=== PATIENT | female | born 1970 | race Caucasian/White ===

== ENCOUNTER 2022-08-11 08:24 | Outpatient (CLI) | payer BC, SELFPAY ==
--- NOTE | ~2022-08-11 | MM_ITS ---
EXAMINATION: MM screening rosalinda BI w fili HISTORY: Screening mammogram TECHNIQUE: Craniocaudal and mediolateral oblique 3-D tomosynthesis images were obtained and synthetic 2-D images were generated. CAD analysis was submitted and interpreted. COMPARISON: 08/26/2015, 06/14/2013 bilateral screening mammogram examinations BREAST PARENCHYMAL COMPOSITION: The breasts are heterogeneously dense, which may obscure small masses . FINDINGS: There is no evidence of suspicious mass, calcification, or architectural distortion to sugg est malignancy in either breast. There has been no suspicious interval change. IMPRESSION: 1. No mammographic evidence of malignancy. 2. Recommend routine screening mammography in one year. BI-RADS Category 1: Negative Reviewed, dictated and finalized at location A.
== END 2022-08-11 08:25 | disposition home or self-care (01) ==
PROVIDERS: Visit Provider Nurse Practitioner Family
DX: Z12.31 Encounter for screening mammogram for malignant neoplasm of breast (principal)
CPT/HCPCS: 77063; 77067

== ENCOUNTER 2024-05-23 10:29 | Outpatient (CLI) | payer BC, SELFPAY ==
--- NOTE | ~2024-05-23 | XR_ITS ---
XR hip BI 2V w AP pelvis Ordering provider: Carissa Torre, BESSEMER CONVERTER OPERATOR History: . Pain in bilateral legs . Comparison: None. FINDINGS: BONES: No acute fracture or dislocation. HIP JOINT SPACES: Normal. SACROILIAC JOINT SPACES/LUMBAR SPINE: The sacroiliac joint spaces are normal. Mild degenerative romero es of the visualized lower lumbar spine. PUBIC SYMPHYSIS: Pubic symphysitis. SOFT TISSUES: Normal. IMPRESSION: No acute osseous abnormality of the bilateral hips and pelvis. Reviewed, dictated and finalized at location A.
--- NOTE | ~2024-05-23 | XR_ITS ---
3 VIEWS LUMBAR SPINE Ordering provider: Carissa Torre, SOFTWARE CONSULTANT History: . Pain in bilateral legs . Comparison: None. FINDINGS: VERTEBRAL BODIES: No visible fracture or subluxation. Mild dextroscoliosis. DISK SPACES: Normal. Mild facet joint disease in the lower lumbar area. SOFT TISSUES: Normal. IMPRESSION: No acute osseous abnormality lumbar spine. Reviewed, dictated and finalized at location A.
== END 2024-05-23 10:30 ==
LOC: MICIMG 10:34
PROVIDERS: PCP Nurse Practitioner Family; Visit Provider Nurse Practitioner Family
DX: M79.604 Pain in right leg (principal); M79.605 Pain in left leg
CPT/HCPCS: 72100; 73521

== ENCOUNTER 2025-06-23 12:58 | Outpatient (CLI) | payer BC, SELFPAY ==
--- NOTE | ~2025-06-23 | MMUS_ITS ---
EXAMINATION: US breast BI complete, MM diagnostic rosalinda BI w fili HISTORY: Breast swelling after tic bite. Swelling resolved after antibiotics. TECHNIQUE: Additional 3-D tomosynthesis images of the breasts were performed and synthetic 2-D images were generated. CAD analysis was submitted and interpreted. High resolution bilateral complete breas t ultrasound was performed. COMPARISON: Comparison to multiple prior studies sequentially, with oldest reviewed study dated 11/2014. BREAST PARENCHYMAL COMPOSITION: Dense: The breasts are heterogeneously dense, which may obscure small masses FINDINGS: MAMMOGRAPHIC FINDINGS: There are no suspicious masses, calcifications or architectural distortion in either breast to sugges t malignancy. ULTRASOUND: Complete US of all 4 quadrants of the breast/s and retroareolar region was reviewed. There are normal bilateral intramammary lymph nodes. There are no suspicious sonographic abnormalities to suggest mal ignancy. IMPRESSION: 1. No evidence for malignancy in either breast. 2. Routine yearly screening mammogram and regular clinical breast examination are recommended. BI-RADS Category 1: Negative Reviewed, dictated and finalized at location B. IMPRESSION: 1. No evidence for malignancy in either breast. 2. Routine yearly screening mammogram and regular clinical breast examination a re recommended. BI-RADS Category 1: Negative
--- OUTSIDE RECORDS SUMMARY | 2025-06-23 13:11 | XMS_ITS | Clinical Summary ---
Author Organization [facility] Address [address] [facility] [place] [address] Care Team Providers Care Dining Service Supervisor Name Role Phone Gayatri Gonzáles APN, CNP Primary Care Provid er Encounters Date Type Department Care Team Description 06/17/2025 3:52 PM CDT - 06/17/2025 11:59 PM CDT Hospital [facility] [address] [place] [address] Gayatri Gonzáles APN, CNP Discharge Disposition: Discharged to home or Selfcare 06/17/2025 Travel 06/17/2025 Transcribe Orders [facility] Central Scheduling [address] [place] [address] Gayatri Gonzáles APN, CNP Chest wall mass (Primary Dx) from Last 3 Months Social History Tobacco Use Types Packs/Day Years Used Date Smoking Tobacco: Never Assessed Comments Unknown Sex and Gender Information Value Date Recorded Sex Assigned at Not on file Legal Sex Female 11:29 AM CDT Gender Identity Not on file Sexual Orientation Not on file Plan of Treatment Health Maintenance Due Date Last Done Comments Hepatitis C Virus (HCV) Screening 1969 Mammogram 1969 Hepatitis B Immunization (1 of 3 - 19+ 3-dose series) 01/28/1988 Pap Smear 1990 Cervical Cancer Screening (CCS) 1999 HPV/Cotest 1999 Cologuard 2014 Colonoscopy 2014 Colorectal Cancer Screening 2014 Immunochemical Fecal Occult Blood 2014 Pneumococcal Immunization (5 0+ years) (1 of 1 - PCV) 2019 SARS-COV-2 Immunization ( season) 2024 01/06/2022, 04/05/2021, 03/13/2021 Influenza Immunization (#1) 2025 Respiratory Syncytial Virus (RSV) Immunization (Adult) (1 - 1-dose 75+ series) 01/28/2044 TdaP Immunization Completed 07/16/2023 Zoster Immunization Completed 09/17/2023, 07/16/2023 Human Papillomavirus (HPV) Immunization Aged Out No longer eligible b ased on patient's age to complete this topic Meningococcal Immunization (ACWY) Aged Out No longer eligible b ased on patient's age to complete this topic Rotavirus Immunization Aged Out No lo nger eligible based on patient's age to complete this topic Procedures Procedure Name Priority Date/Time Associated Diagnosis Comments CT CHEST W CONTRAST STAT 06/17/2025 4 :07 PM CDT Chest wall mass from Last 3 Months Results * CT CHEST W CONTRAST (06/17/2025 4:07 PM CDT) Anatomical Region Laterality Modality Chest N/A Computed Tomogra phy 06/18/2025 2:10 PM CDT Impressions 06/18/2025 2:13 PM CDT IMPRESSION: 1. Subtle skin thickening and mild stranding within the subcutaneous soft tissues at the site of BB marker placed at the area of palpable abnormality in the anterior inferior right chest. No focal soft tissue mass or fluid collection. 2. No acute pulmonary process. 3. 4 mm nodule in the right upper lobe. Per Fleischner Society Guidelines, no follow-up needed if patient is low-risk (and has no known or suspected primary neoplasm). Non-contrast chest CT can be considered in 12 months if patient is high-risk. 4. Hypodense lesions within the liver. In the absence of any history of malignancy these would statistically represent cysts or hemangiomas. 5. Dense fibroglandular parenchyma within both breasts. Would ensure patient is up-to-date with mammography. Narrative 06/18/2025 2:13 PM CDT EXAM DESCRIPTION: CT CHEST W CONTRAST REASON FOR STUDY: Chest wall mass. Marker placed on lump/area of interest. Additional history obtained by technologist reports tick bite, with inflammation and pain. TECHNIQUE: CT scan of the chest performed with intravenous contrast using helical scanning technique with dynamic intravenous contrast injection. Reconstructed coronal and sagittal MPR images reviewed. All images stored on PACS. Automated exposure control was used as a dose optimization technique for this examination. CONTRAST TYPE/DOSE: 100mL of IOPAMIDOL 76 % IV SOLN injected via Intravenous COMPARISON: None FINDINGS: LUNGS: There is no pneumonic consolidation within either lung. Minimal subsegmental scarring/atelectasis. No suspicious pulmonary nodule. There is a 4 mm nodule in the periphery of the right upper lobe on image number 26 there are a few additional micro nodules present bilaterally. The central airways are patent. PLEURA: There is no pleural effusion. There is no pneumothorax. MEDIASTINUM/PATRIZIA: The thyroid gland is unremarkable. There is no mediastinal or hilar lymphadenopathy. Subcentimeter short axis dimension nodes are present. Minimal soft tissue within the anterior mediastinum suggesting residual thymic tissue. HEART: Heart size is normal with no pericardial effusion. VASCULATURE: No thoracic aortic aneurysm or dissection. Main pulmonary trunk is normal in caliber. AXILLA: There are scattered nonenlarged axillary nodes. No axillary adenopathy. CHEST WALL: Dense fibroglandular parenchyma within both breasts. Would ensure patient is up-to-date with mammography. HARDWARE/LINES/TUBES: None. UPPER ABDOMEN: The visualized upper abdomen reveals a hypodense lesion in the left hepatic lobe on image 105 measuring 1 cm, most likely a cyst. There are a few scattered subcentimeter hypodensities in the liver which would statistically represent cysts or hemangiomas. 1 cm hypodensity in the subcapsular posterior right hepatic lobe on image number 131 spleen is unremarkable. The adrenal glands are unremarkable. Visualized biliary tree within normal limits in caliber. MUSCULOSKELETAL: There is no acute osseous abnormality. OTHER: At the site of BB marker placed at the area of palpable abnormality in the anterior inferior right chest, there is very subtle skin thickening and mild stranding within the adjacent subcutaneous soft tissues. No focal soft tissue mass or fluid collection. THIS IS AN ELECTRONICALLY VERIFIED FINAL REPORT 06/18/2025 2:10 PM - Electronically signed by Jeni Kenney M.D. TW: TW Report ID: [id number] Reading Location: [id number] Procedure Note Kenney, Jeni Olivier MD - 06/18/2025 EXAM DESCRIPTION: CT CHEST W CONTRAST REASON FOR STUDY: Chest wall mass. Marker placed on lump/area of interest. Additional history obtained by technologist reports tick bite, with inflammation and pain. TECHNIQUE: CT scan of the chest performed with intravenous contrast using helical scanning technique with dynamic intravenous contrast injection. Reconstructed coronal and sagittal MPR images reviewed. All images stored on PACS. Automated exposure control was used as a dose optimization technique for this examination. CONTRAST TYPE/DOSE: 100mL of IOPAMIDOL 76 % IV SOLN injected via Intravenous COMPARISON: None FINDINGS: LUNGS: There is no pneumonic consolidation within either lung. Minimal subsegmental scarring/atelectasis. No suspicious pulmonary nodule. There is a 4 mm nodule in the periphery of the right upper lobe on image number 26 there are a few additional micro nodules present bilaterally. The central airways are patent. PLEURA: There is no pleural effusion. There is no pneumothorax. MEDIASTINUM/PATRIZIA: The thyroid gland is unremarkable. There is no mediastinal or hilar lymphadenopathy. Subcentimeter short axis dimension nodes are present. Minimal soft tissue within the anterior mediastinum suggesting residual thymic tissue. HEART: Heart size is normal with no pericardial effusion. VASCULATURE: No thoracic aortic aneurysm or dissection. Main pulmonary trunk is normal in caliber. AXILLA: There are scattered nonenlarged axillary nodes. No axillary adenopathy. CHEST WALL: Dense fibroglandular parenchyma within both breasts. Would ensure patient is up-to-date with mammography. HARDWARE/LINES/TUBES: None. UPPER ABDOMEN: The visualized upper abdomen reveals a hypodense lesion in the left hepatic lobe on image 105 measuring 1 cm, most likely a cyst. There are a few scattered subcentimeter hypodensities in the liver which would statistically represent cysts or hemangiomas. 1 cm hypodensity in the subcapsular posterior right hepatic lobe on image number 131 spleen is unremarkable. The adrenal glands are unremarkable. Visualized biliary tree within normal limits in caliber. MUSCULOSKELETAL: There is no acute osseous abnormality. OTHER: At the site of BB marker placed at the area of palpable abnormality in the anterior inferior right chest, there is very subtle skin thickening and mild stranding within the adjacent subcutaneous soft tissues. No focal soft tissue mass or fluid collection. THIS IS AN ELECTRONICALLY VERIFIED FINAL REPORT 06/18/2025 2:10 PM - Electronically signed by Jeni Kenney M.D. TW: TW Report ID: [id number] Reading Location: [place] [address] IMPRESSION: 1. Subtle skin thickening and mild stranding within the subcutaneous soft tissues at the site of BB marker placed at the area of palpable abnormality in the anterior inferior right chest. No focal soft tissue mass or fluid collection. 2. No acute pulmonary process. 3. 4 mm nodule in the right upper lobe. Per Fleischner Society Guidelines, no follow-up needed if patient is low-risk (and has no known or suspected primary neoplasm). Non-contrast chest CT can be considered in 12 months if patient is high-risk. 4. Hypodense lesions within the liver. In the absence of any history of malignancy these would statistically represent cysts or hemangiomas. 5. Dense fibroglandular parenchyma within both breasts. Would ensure patient is up-to-date with mammography. Gayatri Gonzáles APN, CNP IMG CT ORDERABLES Fi nal Result from Last 3 Months Insurance [facility] Care Teams Dining Service Supervisor Relationship Specialty Start Date End Date Gayatri Gonzáles APN, CNP [address] [place] [address] PCP - General Advanced Practice Nurse 06/17/25
--- OUTSIDE RECORDS SUMMARY | 2025-06-23 13:11 | XMS_ITS | Clinical Summary ---
Author Organization [facility] Address [address] [place] [address] Care Team Providers Care Blueprint Reader Name Role Phone Unavailable Primary Care Provider Unavailabl e Medications permethrin (ELIMITE) 5 % Cream APPLY (THOROUGHLY MASSAGE INTO SKIN FROM NECK TO SOLES OF FEET) BY TOPICAL ROUTE ONCE, LEAVE ON FOR 8-14 HR, THEN REMOVE BY THOROUGH WASHING 60 Gram 07/11/2022 5:47 PM CDT 2 Active triamcinolone acetonide (KENALOG) 0.1 % Cream APPLY A THIN LAYER TO THE AFFECTED AREA(S) BY TOPICAL ROUTE 2 TIMES PER DAY NEEDED 45 Gram 07/18/2022 6:18 PM CDT 2 Active albuterol sulfate 90 mcg/Actuation inhaler Inhale 2 puffs every 4 hours by inhalation route as needed. 8.5 Gram 1 10/27/2022 3:07 PM [employer] INTERFACE DEVELOPER 2 Active Social History Tobacco Use Types Packs/Day Years Used Date Smoking Tobacco: Never Assessed Comments Unknown Sex and Gender Information Value Date Recorded Sex Assigned at Not on file Legal Sex Female 2:01 PM CDT Gender Identity Not on file Sexual Orientation Not on file Plan of Treatment Health Maintenance Due Date Last Done Comments DTAP/TDAP/TD VACCINES (1 - Tdap) 01/28/1988 HEPATITIS B VACCINES (1 of 3 - 19+ 3-dose series) 02/1988 HPV/Cotest (21-29) 1990 CERVICAL CANCER SCREENING 1999 HPV/Cotest (30-65) 1999 PAP SMEAR 1999 BREAST CANCER SCREENING 2009 COLORECTAL SCREENING 2014 Colorectal Cancer Screening 2014 FIT-DNA Q 3 years 2014 FIT/FOBT Q 1 year 2014 Flex Sig/CT Colonography Q 5 years 2014 ZOSTER VACCINE (1 of 2) 2019 INFLUENZA VACCINE (#1) 2025 Insurance RX [employer] Medicaid RX [facility] [employer]
--- OUTSIDE RECORDS SUMMARY | 2025-06-23 13:11 | XMS_ITS | Data Portability ---
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 She voices understanding of plan and agrees Not available 03/28/2023 13:55:26 Plan of Treatment Reminders Order Date Submit Date Provider Last Modified By Organization Details Last Modified Time Details Appointments None recorded. Lab CBC w/ auto diff 2023 [email or web address] [employer] [facility], [address], [place], [address], 10:38:52 CMP, serum or plasma 2023 [email or web address], [address], [place], [address], 10:38:53 C-reactive protein, quantitati ve, serum or plasma 2023 [email or web address], [address], [place], [address], 14:48:41 erythrocyt e sedimentat ion rate by westergren method 2023 [place] [address] [employer] [facility], [address], [place], [address], 4 14:48:41 lipid panel, serum [address] (Lab), [address] [place], [address], 4 14:48:40 vitamin D, 25-hydroxy , total, serum 2023 [place] [address] [employer] [facility], [address], [place], [address], 4 14:48:41 vitamin B12 + folate, serum or blood 2023 [place] [address] [employer] [facility], [address], [place], [address], 4 14:48:41 TSH + free T4, serum 2023 024 [place] [address] [employer] [facility], [address], [place], [address], 4 10:38:54 HbA1c (hemoglobi n A1c), blood 2023 024 [facility], [address], [place], [address], 4 16:31:18 FSH (follicle- stimulatin g hormone), serum 2023 024 [facility], [address], [place], [address], 4 16:30:50 estrogen, total, serum 2023 024 [employer] [facility], [address], [place], [address], 4 16:30:50 progestero ne, serum 2023 024 [facility], [address], [place], [address], 4 16:30:49 testostero ne, total, serum 2023 024 [email or web address] [facility], [address], [place], [address], 4 14:48:41 lipid panel, serum 2022 023 [facility], [address], [place], [address], 3 10:50:27 vitamin D, 25-hydroxy , total, serum 2022 023 [facility], [address], [place], [address], 3 10:50:32 TSH, serum, reflex free T4 2022 023 [email or web address] [facility], [address], [place], [address], 3 17:21:17 HbA1c (hemoglobi n A1c), blood 2022 023 [facility], [address], [place], [address], 3 10:50:32 CMP, serum or plasma 2022 023 [facility], [address], [place], [address], 3 10:50:29 CBC w/ auto diff 2022 023 [facility], [address], [place], [address], 3 10:50:[address] referral - due for WWE- now has commercial insurance 2022 023 [email or web address] Kia Arambula MD, [address], [address], [place], [address], 4 14:11:20 plastic surgeon referral - please schedule with Ana for annual skin check 2022 023 [email or web address] Franklin Sharma MD, [address], [address], [place], [address], 4 14:11:21 Procedures None recorded. Surgeries None recorded. Imaging XR, hip + pelvis, bilateral, 3 or 4 view 2023 024 [email or web address], [address], [address], [place], [address], 5 07:42:33 XR, lumbar spine, 2 view 2023 024 [facility], [address], [address], [place], [address], 4 08:17:05 Medication Orders None recorded. Patient TargetsNo targets recorded. Patient Instructions Encounter Date Encounter Id Patient Instructions Last Modified By Organization Details Last Modified Time 03/28/2023 [id number] INFLUENZA VACCIN E Next vaccination to be given fall of TD/TDAP Patient will get at local pharmacy/health department PNEUMONIA VACCINE Patient will get at local pharmacy/health department SHINGLES Patient will get at local pharmacy/health department MAMMOGRAM: Last Mammogram __ No screening necessary patient is up to date DEXA SCAN Ordered CERVICAL SCREENING/PELVIC EXAMINATION Ordered COLORECTAL SCREENING: Last Colonoscopy No screening necessary patient is up to date DEPRESSION SCREENING Negative BMI Appropriate Continue healthy eating & exercise NUTRITION Continue healthy eating & exercise PHYSICAL ACTIVITY Need more exercise/physical activity minimum of 30-40 minutes of activity that causes mild breathlessness/da y VISION Recommended today ALCOHOL USE Occasional/Social Use TOBACCO USE non smoker LUNG CANCER SCREENING Non Smoker-not indicated SEXUALLY ACTIVE Yes, Patient is in monogamous relationship HEPATITIS C SCREENING Not indicated GLUCOSE SCREENING Ordered LIPID SCREENING Ordered [email or web address] Not available 03/28/2023 13:55:21 04/30/2024 [id number] (BOSSMAN) ankle brachial index* [email or web address] Not available 11/03/2024 07:46:59 Follow up in 6 months and as needed Obtain labs Obtain xrays of hips/pelvis/lumba r spine Obtain ABIs Follow up with chiropractor [email or web address] Not available 04/30/2024 10:31:27 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 0 Diabe shakira Scree daniel Crite lamin: <5.7% Consi stent with absen ce of diabe shakira 5.7-6 .4% Consi stent with incre ased risk for diabe shakira (pred iabet es) >OR=6 .5% Consi stent with diabe shakira REFER ENCE: Diabe shakira Care 2016, 39(Jacome ppl.1 ):s13 -s22 Not Available [facility] (Lab) [address] [place], [address], 02/22/2022 20:23:07 02/23/20 22 02/22/2022 LIPID PANEL cholesterol 202 mg/dL 140-19 9 high NIH FRANCINE NSUS RECOM MENDA TION FOR HARIKA STERO L: ADULT CHILD LOW RISK: <200 <170 BORDE RLINE : <200- 239 ----- HIGH RISK: >240 >200 Not Available [facility] (Lab) [address] [place], [address], 02/22/2022 19:43:02 02/23/20 22 02/22/2022 LIPID PANEL triglyceride s 87 mg/dL 0-150 NIH FRANCINE NSUS REPOR T RECOM MENDA TION FOR TRIGL YCERI ARIANA: ADULT CHILD LOW RISK: <150 ----- BODER LINE: 150-1 99 ----- HIGH RISK: >200 ----- Not Available [facility] (Lab) [address] [place], [address], 02/22/2022 19:43:02 02/23/20 22 02/22/2022 LIPID PANEL HDL cholesterol 101 mg/dL 40- Not Available [facility] (Lab) [address] [place], [address], 02/22/2022 19:43:02 02/23/20 22 02/22/2022 LIPID PANEL LDL cholesterol, calculated 84 mg/dL 0-130 NIH FRANCINE NSUS REPOR T RECOM MENDA TIONS FOR LDL: ADULT CHILD LOW RISK <130 <110 (OPTI MAL LDL) <100 ----- BORDE RLINE : 130-1 59 ----- HIGH RISK: >160 >130 A TRIGL YCERI DE RESUL T >400 INVAL IDATE S THE CALCU LATIO N FOR LDL FRACT IONAT ION - THE LDL RESUL T WILL NOT BE REPOR LACY. Not Available [facility] (Lab) [address] [place], [address], 02/22/2022 19:43:02 02/23/20 22 02/24/2022 ESTRA DIOL estradiol 11.3 pg/mL Adult Femal e: Folli cular phase 12.5 - 166.0 Ovula tion phase 85.8 - 498.0 Lutea l phase 43.8 - 211.0 Postm enopa usal <6.0 - 54.7 Pregn lucio 1st trime ster 215.0 - >4300 .0 William ECLIA metho dolog y Perfo rmed at: - [facility] [address] [place] [address] Lab Direc tor: Edvin contreras PhD, Phone : [phone] Not Available [facility] (Lab) [address] [place], [address], 02/24/2022 08:16:56 02/23/20 22 02/24/2022 FSH/F OLLIC LE STIMU LAT. HORMO NE [facility] - [facility] 65.6 mIU/m L Adult Femal e: Folli cular phase 3.5 - 12.5 Ovula tion phase 4.7 - 21.5 Lutea l phase 1.7 - 7.7 Postm enopa usal 25.8 - 134.8 Perfo rmed at: [facility] [address] [place] [address] Lab Direc tor: Edvin contreras PhD, Phone : [phone] Not Available [facility] (Lab) [address] [place], [address], 02/24/2022 08:16:55 02/23/20 22 02/22/2022 FOLAT E, SERUM /PLAS MA folate 8.36 NG/mL 2.76- Not Available [facility] (Lab) [address] [place], [address], 02/22/2022 20:43:46 02/23/20 22 02/22/2022 VITAM IN B12 (WILL CASSANDRA ) vb12 880 pg/mL 239-93 1 Not Available [facility] (Lab) [address] [place], [address], 02/22/2022 20:43:36 02/23/20 22 02/22/2022 RUDOLPH TIN ferritin 37 NG/mL 11.1-2 64 Not Available [facility] (Lab) [address] [place], [address], 02/22/2022 20:13:01 02/23/20 22 02/22/2022 TSH thyroid-stim ulating hormone 1.900 uIU/m L 0.465- 4.680 Not Available [facility] (Lab) [address] [place], [address], 02/22/2022 20:12:41 02/23/20 22 02/22/2022 VITAM IN D 25-HY DROXY [id number] 72.1 NG/mL 30-100 Vitam in D Statu s: Defic ient: <20 ng/mL Insuf ficie nt: 20-29 ng/mL Suffi cient : 30-10 0 ng/mL Not Available [facility] (Lab) [address] [place], [address], 02/22/2022 19:53:59 02/23/20 22 02/22/2022 T3 FREE free T3 3.3 pg/mL 2.77-5 .27 Not Available [facility] (Lab) [address] [place], [address], 02/22/2022 19:48:00 02/23/20 22 02/22/2022 T4 FREE free T4 1.03 NG/dL 0.78-2 .19 Not Available [facility] (Lab) [address] [place], [address], 02/22/2022 19:47:59 02/23/20 22 02/22/2022 IRON/ TIBC PANEL total iron binding capacity 289 mcg/d L 265-47 5 Not Available [facility] (Lab) [address] [place], [address], 02/22/2022 19:43:06 02/23/20 22 02/22/2022 IRON/ TIBC PANEL % transferrin saturation 30 % 20-55 Not Available [facility] (Lab) [address] [place], [address], 02/22/2022 19:43:06 02/23/20 22 02/22/2022 IRON/ TIBC PANEL unsaturated iron bind capacity 201 mcg/d L 126-38 2 Not Available [facility] (Lab) [address] [place], [address], 02/22/2022 19:43:06 02/23/20 22 02/22/2022 IRON/ TIBC PANEL iron 88 mcg/d L 42-175 Not Available [facility] (Lab) [address] [place], [address], 02/22/2022 19:43:06 02/23/20 22 02/22/2022 COMPR EHENS TEMI METAB OLIC PANEL sodium 139 mmol/ L 137-14 5 Not Available [facility] (Lab) [address] [place], [address], 02/22/2022 19:42:57 02/23/20 22 02/22/2022 COMPR EHENS TEMI METAB OLIC PANEL potassium 4.3 mmol/ L 3.5-5. 1 Not Available [facility] (Lab) [address] [place], [address], 02/22/2022 19:42:57 02/23/20 22 02/22/2022 COMPR EHENS TEMI METAB OLIC PANEL chloride 108 mmol/ L 98-107 high Not Available [facility] (Lab) [address] [place], [address], 02/22/2022 19:42:57 02/23/20 22 02/22/2022 COMPR EHENS TEMI METAB OLIC PANEL carbon dioxide 26 mmol/ L 22-30 Not Available [facility] (Lab) [address] [place], [address], 02/22/2022 19:42:57 02/23/20 22 02/22/2022 COMPR EHENS TEMI METAB OLIC PANEL agap 9.3 mmol/ L 14-22 low Not Available [facility] (Lab) [address] [place], [address], 02/22/2022 19:42:57 02/23/20 22 02/22/2022 COMPR EHENS TEMI METAB OLIC PANEL glucose 109 mg/dL 70-99 high Not Available [facility] (Lab) [address] [place], [address], 02/22/2022 19:42:57 02/23/20 22 02/22/2022 COMPR EHENS TEMI METAB OLIC PANEL BUN 23 mg/dL 8-19 high Not Available [facility] (Lab) [address] [place], [address], 02/22/2022 19:42:57 02/23/20 22 02/22/2022 COMPR EHENS TEMI METAB OLIC PANEL creatinine 0.76 mg/dL 0.66-1 .25 Not Available [facility] (Lab) [address] [place], [address], 02/22/2022 19:42:57 02/23/20 22 02/22/2022 COMPR EHENS TEMI METAB OLIC PANEL GFR >60 Refer ence Range : [place] ge GFR Healt hy Adult : >60 mL/mi n/1.7 3 m2 Chron ic Kidne y Disea se: 15-60 mL/mi n/1.7 3 m2 Kidne y Failu re: <15/m L/min /1.73 m2 www.n iddk. nih.g ov The MDRD study equat ion has not been valid ated in child simona <18 years of age; pregn ant women ; the elder ly >85 years of age; or in some racia l or ethni c subgr oups, such as Hispa nics. Outsi de the valid ated nicole eters , estim ated GFR is less accur ate, requi ring clini radha judgm ent on a case- by-ca se basis . Clini radha inter preta tion for other races and ages must be made by the clini eyal. The MDRD study equat ion has not been valid ated for the evalu ation of serum creat inine relat ed to nutri loni l statu s or medic ation usage . For perso ns <18 years of age, a pedia tric GFR calcu lator is avail able on the F websi te: https ://ryanne w.domi jemma.o rg/pr ofess ional s/kdo qi/gf r_cal culat or Not Available [facility] (Lab) [address] [place], [address], 02/22/2022 19:42:57 02/23/20 22 02/22/2022 COMPR EHENS TEMI METAB OLIC PANEL alkaline phosphatase 59 U/L 38-126 Not Available [facility] (Lab) [address] [place], [address], 02/22/2022 19:42:57 02/23/20 22 02/22/2022 COMPR EHENS TEMI METAB OLIC PANEL alanine aminotransfe rase 16 U/L 0-35 Not Available [facility] (Lab) [address] [place], [address], 02/22/2022 19:42:57 02/23/20 22 02/22/2022 COMPR EHENS TEMI METAB OLIC PANEL aspartate aminotransfe rase 24 U/L 15-37 Not Available [facility] (Lab) [address] [place], [address], 02/22/2022 19:42:57 02/23/20 22 02/22/2022 COMPR EHENS TEMI METAB OLIC PANEL bilirubin, total 0.20 mg/dL 0.20-1 .30 Not Available [facility] (Lab) [address] [place], [address], 02/22/2022 19:42:57 02/23/20 22 02/22/2022 COMPR EHENS TEMI METAB OLIC PANEL calcium 9.6 mg/dL 8.4-10 .2 Not Available [facility] (Lab) [address] [place], [address], 02/22/2022 19:42:57 02/23/20 22 02/22/2022 COMPR EHENS TEMI METAB OLIC PANEL total protein 6.8 g/dL 6.3-8. 2 Not Available [facility] (Lab) [address] [place], [address], 02/22/2022 19:42:57 02/23/20 22 02/22/2022 COMPR EHENS TEMI METAB OLIC PANEL albumin 4.1 g/dL 3.4-5. 0 Not Available [facility] (Lab) [address] [place], [address], 02/22/2022 19:42:57 02/23/20 22 02/22/2022 COMPR EHENS TEMI METAB OLIC PANEL globulin 2.7 g/dL 2.6-4. 2 Not Available [facility] (Lab) [address] [place], [address], 02/22/2022 19:42:57 02/23/20 22 02/22/2022 COMPR EHENS TEMI METAB OLIC PANEL A/G ratio 1.5 ratio 1.0-2. 0 Not Available [facility] (Lab) [address] [place], [address], 02/22/2022 19:42:57 02/23/20 22 02/22/2022 CBC/C OMPLE TE BLD COUNT W/DIF F white blood cells 6.0 x10'3 /uL 4.2-10 .8 Not Available [facility] (Lab) [address] [place], [address], 02/22/2022 19:19:38 02/23/20 22 02/22/2022 CBC/C OMPLE TE BLD COUNT W/DIF F red blood cells 4.21 x10'6 /uL 3.80-5 .20 Not Available [facility] (Lab) [address] [place], [address], 02/22/2022 19:19:38 02/23/20 22 02/22/2022 CBC/C OMPLE TE BLD COUNT W/DIF F hemoglobin 13.8 g/dL 12.0-1 5.6 Not Available [facility] (Lab) [address] [place], [address], 02/22/2022 19:19:38 02/23/20 22 02/22/2022 CBC/C OMPLE TE BLD COUNT W/DIF F hematocrit 40.8 % 35.7-4 5.7 Not Available [facility] (Lab) [address] [place], [address], 02/22/2022 19:19:38 02/23/20 22 02/22/2022 CBC/C OMPLE TE BLD COUNT W/DIF F mean red cell volume 96.9 fL 82.0-9 9.0 Not Available [facility] (Lab) [address] [place], [address], 02/22/2022 19:19:38 02/23/20 22 02/22/2022 CBC/C OMPLE TE BLD COUNT W/DIF F mean red cell hemoglobin 32.8 pg 27.0-3 3.0 Not Available [facility] (Lab) [address] [place], [address], 02/22/2022 19:19:38 02/23/20 22 02/22/2022 CBC/C OMPLE TE BLD COUNT W/DIF F mean RBC HGB concentratio n 33.8 g/dL 31.0-3 6.0 Not Available [facility] (Lab) [address] [place], [address], 02/22/2022 19:19:38 02/23/20 22 02/22/2022 CBC/C OMPLE TE BLD COUNT W/DIF F red cell distribution width 11.7 % 11.8-1 5.5 low Not Available [facility] (Lab) [address] [place], [address], 02/22/2022 19:19:38 02/23/20 22 02/22/2022 CBC/C OMPLE TE BLD COUNT W/DIF F platelets 262 x10'3 /uL 150-40 0 Not Available [facility] (Lab) [address] [place], [address], 02/22/2022 19:19:38 02/23/20 22 02/22/2022 CBC/C OMPLE TE BLD COUNT W/DIF F mean platelet volume 10.6 fL 9.0-12 .4 Not Available [facility] (Lab) [address] [place], [address], 02/22/2022 19:19:38 02/23/20 22 02/22/2022 CBC/C OMPLE TE BLD COUNT W/DIF F neutrophils 66.8 % 39.0-7 2.0 Not Available [facility] (Lab) [address] [place], [address], 02/22/2022 19:19:38 02/23/20 22 02/22/2022 CBC/C OMPLE TE BLD COUNT W/DIF F lymphocytes 26.2 % 16.0-4 7.0 Not Available [facility] (Lab) [address] [place], [address], 02/22/2022 19:19:38 02/23/20 22 02/22/2022 CBC/C OMPLE TE BLD COUNT W/DIF F monocytes 6.0 % 5.0-12 .0 Not Available [facility] (Lab) [address] [place], [address], 02/22/2022 19:19:38 02/23/20 22 02/22/2022 CBC/C OMPLE TE BLD COUNT W/DIF F eosinophils 0.2 % 1.0-7. 0 low Not Available [facility] (Lab) [address] [place], [address], 02/22/2022 19:19:38 02/23/20 22 02/22/2022 CBC/C OMPLE TE BLD COUNT W/DIF F basophils 0.5 % 0.0-2. 0 Not Available [facility] (Lab) [address] [place], [address], 02/22/2022 19:19:38 02/23/20 22 02/22/2022 CBC/C OMPLE TE BLD COUNT W/DIF F immature granulocytes 0.3 % 0.00-0 .50 Not Available [facility] (Lab) [address] [place], [address], 02/22/2022 19:19:38 02/23/20 22 02/22/2022 CBC/C OMPLE TE BLD COUNT W/DIF F neutrophils, absolute count 4.03 x10'3 /uL 1.5-8. 0 Not Available [facility] (Lab) [address] [place], [address], 02/22/2022 19:19:38 02/23/20 22 02/22/2022 CBC/C OMPLE TE BLD COUNT W/DIF F lymphocytes, absolute count 1.58 x10'3 /uL 1.07-3 .43 Not Available [facility] (Lab) [address] [place], [address], 02/22/2022 19:19:38 02/23/20 22 02/22/2022 CBC/C OMPLE TE BLD COUNT W/DIF F monocytes, absolute count 0.36 x10'3 /uL 0.29-0 .99 Not Available [facility] (Lab) [address] [place], [address], 02/22/2022 19:19:38 02/23/20 22 02/22/2022 CBC/C OMPLE TE BLD COUNT W/DIF F eosinophils, absolute count 0.01 x10'3 /uL 0.02-0 .53 low Not Available [facility] (Lab) [address] [place], [address], 02/22/2022 19:19:38 02/23/20 22 02/22/2022 CBC/C OMPLE TE BLD COUNT W/DIF F basophils, absolute count 0.03 x10'3 /uL 0.01-0 .08 Not Available [facility] (Lab) [address] [place], [address], 02/22/2022 19:19:38 02/23/20 22 02/22/2022 CBC/C OMPLE TE BLD COUNT W/DIF F immature granulocytes ,absolute 0.02 x10'3 /uL 0.00-0 .05 Not Available [facility] (Lab) [address] [place], [address], 02/22/2022 19:19:38 02/23/20 22 02/22/2022 CBC/C OMPLE TE BLD COUNT W/DIF F nucleated red blood cells 0.0 % -0 Not Available [facility] (Lab) [address] [place], [address], 02/22/2022 19:19:38 02/23/20 22 02/22/2022 CBC/C OMPLE TE BLD COUNT W/DIF F NRBC# 0.00 x10'3 /uL Not Available [facility] (Lab) [address] [place], [address], 02/22/2022 19:19:38 02/28/20 22 02/27/2022 COLOG UARD cologuard result reportable negati ve negati ve NEGAT TEMI TEST RESUL T. A negat temi Colog uard resul t indic ates a low likel ihood that a color ectal cance r (CRC) or advan marlene adeno ma (beny omato us polyp s with more advan marlene pre-m align ant featu res) is prese nt. The [facility] e that a perso n with a negat temi Colog uard test has a color ectal cance r is less than 1 in 1500 (nega tive predi ctive value >99.9 %) or has an advan marlene adeno ma is less than 5.3% (nega tive predi ctive value 94.7% ). These data are based on a prosp ectiv e cross -sect ional study of ,00 0 indiv idual s at [place] risk for color ectal cance r who were scree kiana with both Colog uard and colon oscop y. (Darius Berry et al, N Engl J Med 2014; 370(1 4):12 86-12 97) The ar l value (refe rence range ) for this assay is negat temi. COLOG UARD RE-SC REEJESSICA MILTON RECOM MENDA TION: Perio dic color ectal cance r scree daniel is an impor tant part of preve ntive healt hcare for asymp tomat ic indiv idual s at [place] risk for color ectal cance r. Follo wing a negat temi Colog uard resul t, the Ameri can Cance r Socie ty and U.S. Multi -Soci ety Task Force scree daniel guide lines recom mend a Colog uard re-sc michael milton inter aldo of 3 years . Refer ences : Ameri can Cance r Socie ty Guide line for Color ectal Cance r Scree daniel: https ://ww w.can cer.o rg/ca ncer/ colon -rect al-ca ncer/ detec tion- diagn osis- stagi ng/ac s-rec ommen datio ns.ht ml.; Roger JUSTICE, Bette VIVAR, Nicci MitchellK, Color ectal Cance r Scree daniel: Recom menda tions for Physi cians and Patie nts from the U.S. Multi -Soci ety Task Force on Color ectal Cance r Scree daniel , Am J Abdifatah buenonte rolog y 2017; 112:1 016-1 030. TEST DESCR IPTIO N: [place] site algor ithmi c jack sis of stool DNA-b franci izaguirre with hemog lobin immun oassa y. Quant itati ve value s of indiv idual bioma rkers are not repor table and are not assoc iated with indiv idual bioma rker resul t refer ence range s. Colog uard is inten ded for color ectal cance r scree daniel of adult s of eithe r sex, 45 years or older , who are at [facility] for color ectal cance r (CRC) . Colog uard has been appro jackelyn for use by the U.[place]. FDA. The perfo rmanc e of Colog uard was estab lishe d in a cross secti onal study of [facility] adult s aged 50-84 . Colog uard perfo rmanc e in patie nts ages 45 to 49 years was estim ated by sub-g roup jack sis of near- age group s. Colon oscop ies perfo rmed for a posit temi resul t may find as the most clini bran signi aravind prasad lespetros n: color ectal cance r [4.0% ], advan marlene adeno ma (incl uding sessi le richard lacy polyp s great er than or equal to 1cm diame ter) [20%] or non- advan marlene adeno ma [31%] ; or no color ectal neopl adria [45%] . These estim ates are deriv ed from a prosp ectiv e cross -sect ional scree daniel study of 10,00 0 indiv idual s at [facility] risk for color ectal cance r who were scree kiana with both Colog uard and colon oscop y. (Darius Mack al, N Engl J Med 2014; 370(1 4):12 86-12 97.) Colog uard may produ ce a false negat temi or false posit temi resul t (no color ectal cance r or preca ncero us polyp prese nt at colon oscop y follo w up). A negat temi Colog uard test resul t does not guara ntee the absen ce of CRC or advan marlene adeno ma (pre- cance r). The curre nt Colog uard scree daniel inter aldo is every 3 years . ([employer] r [employer] ty and [employer] Multi -Soci [employer]y Task Force ). Colog uard perfo rmanc e data in a 10,00 0 patie nt pivot al study using colon oscop y as the refer ence metho d can be acces sed at the follo wing locat ion: www.e xactl abs.c om/re sults . Addit ional descr iptio n of the Colog uard test proce ss, warni ngs and preca ution s can be found at www.c ologu radha.c om. Not Available [facility] (Cologuard Orders Only) [address], [place], [address], 03/03/2022 17:29:47 03/22/20 22 03/22/2022 CBC/C OMPLE TE BLD COUNT W/DIF F NRBC# 0.00 x10'3 /uL Not Available [facility] (Lab) [address] [place], [address], 03/22/2022 19:29:37 03/22/20 22 03/22/2022 CBC/C OMPLE TE BLD COUNT W/DIF F white blood cells 5.6 x10'3 /uL 4.2-10 .8 Not Available [facility] (Lab) [address] [place], [address], 03/22/2022 19:29:37 03/22/20 22 03/22/2022 CBC/C OMPLE TE BLD COUNT W/DIF F red blood cells 4.14 x10'6 /uL 3.80-5 .20 Not Available [facility] (Lab) [address] [place], [address], 03/22/2022 19:29:37 03/22/20 22 03/22/2022 CBC/C OMPLE TE BLD COUNT W/DIF F hemoglobin 13.4 g/dL 12.0-1 5.6 Not Available [facility] (Lab) [address] [place], [address], 03/22/2022 19:29:37 03/22/20 22 03/22/2022 CBC/C OMPLE TE BLD COUNT W/DIF F hematocrit 40.6 % 35.7-4 5.7 Not Available [facility] (Lab) [address] [place], [address], 03/22/2022 19:29:37 03/22/20 22 03/22/2022 CBC/C OMPLE TE BLD COUNT W/DIF F mean red cell volume 98.1 fL 82.0-9 9.0 Not Available [facility] (Lab) [address] [place], [address], 03/22/2022 19:29:37 03/22/20 22 03/22/2022 CBC/C OMPLE TE BLD COUNT W/DIF F mean red cell hemoglobin 32.4 pg 27.0-3 3.0 Not Available [facility] (Lab) [address] [place], [address], 03/22/2022 19:29:37 03/22/20 22 03/22/2022 CBC/C OMPLE TE BLD COUNT W/DIF F mean RBC HGB concentratio n 33.0 g/dL 31.0-3 6.0 Not Available [facility] (Lab) [address] [place], [address], 03/22/2022 19:29:37 03/22/20 22 03/22/2022 CBC/C OMPLE TE BLD COUNT W/DIF F red cell distribution width 12.2 % 11.8-1 5.5 Not Available [facility] (Lab) [address] [place], [address], 03/22/2022 19:29:37 03/22/20 22 03/22/2022 CBC/C OMPLE TE BLD COUNT W/DIF F platelets 267 x10'3 /uL 150-40 0 Not Available [facility] (Lab) [address] [place], [address], 03/22/2022 19:29:37 03/22/20 22 03/22/2022 CBC/C OMPLE TE BLD COUNT W/DIF F mean platelet volume 10.3 fL 9.0-12 .4 Not Available [facility] (Lab) [address] [place], [address], 03/22/2022 19:29:37 03/22/20 22 03/22/2022 CBC/C OMPLE TE BLD COUNT W/DIF F neutrophils 58.7 % 39.0-7 2.0 Not Available [facility] (Lab) [address] [place], [address], 03/22/2022 19:29:37 03/22/20 22 03/22/2022 CBC/C OMPLE TE BLD COUNT W/DIF F lymphocytes 33.3 % 16.0-4 7.0 Not Available [facility] (Lab) [address] [place], [address], 03/22/2022 19:29:37 03/22/20 22 03/22/2022 CBC/C OMPLE TE BLD COUNT W/DIF F monocytes 6.7 % 5.0-12 .0 Not Available [facility] (Lab) [address] [place], [address], 03/22/2022 19:29:37 03/22/20 22 03/22/2022 CBC/C OMPLE TE BLD COUNT W/DIF F eosinophils 0.5 % 1.0-7. 0 low Not Available [facility] (Lab) [address] [place], [address], 03/22/2022 19:29:37 03/22/20 22 03/22/2022 CBC/C OMPLE TE BLD COUNT W/DIF F basophils 0.4 % 0.0-2. 0 Not Available [facility] (Lab) [address] [place], [address], 03/22/2022 19:29:37 03/22/20 22 03/22/2022 CBC/C OMPLE TE BLD COUNT W/DIF F immature granulocytes 0.4 % 0.00-0 .50 Not Available [facility] (Lab) [address] [place], [address], 03/22/2022 19:29:37 03/22/20 22 03/22/2022 CBC/C OMPLE TE BLD COUNT W/DIF F neutrophils, absolute count 3.26 x10'3 /uL 1.5-8. 0 Not Available [facility] (Lab) [address] [place], [address], 03/22/2022 19:29:37 03/22/20 22 03/22/2022 CBC/C OMPLE TE BLD COUNT W/DIF F lymphocytes, absolute count 1.85 x10'3 /uL 1.07-3 .43 Not Available [facility] (Lab) [address] [place], [address], 03/22/2022 19:29:37 03/22/20 22 03/22/2022 CBC/C OMPLE TE BLD COUNT W/DIF F monocytes, absolute count 0.37 x10'3 /uL 0.29-0 .99 Not Available [facility] (Lab) [address] [place], [address], 03/22/2022 19:29:37 03/22/20 22 03/22/2022 CBC/C OMPLE TE BLD COUNT W/DIF F eosinophils, absolute count 0.03 x10'3 /uL 0.02-0 .53 Not Available [facility] (Lab) [address] [place], [address], 03/22/2022 19:29:37 03/22/20 22 03/22/2022 CBC/C OMPLE TE BLD COUNT W/DIF F basophils, absolute count 0.02 x10'3 /uL 0.01-0 .08 Not Available [facility] (Lab) [address] [place], [address], 03/22/2022 19:29:37 03/22/20 22 03/22/2022 CBC/C OMPLE TE BLD COUNT W/DIF F immature granulocytes ,absolute 0.02 x10'3 /uL 0.00-0 .05 Not Available [facility] (Lab) [address] [place], [address], 03/22/2022 19:29:37 03/22/20 22 03/22/2022 CBC/C OMPLE TE BLD COUNT W/DIF F nucleated red blood cells 0.0 % -0 Not Available [facility] (Lab) [address] [place], [address], 03/22/2022 19:29:37 04/05/20 23 04/06/2023 LIPID PANEL , STAND RADHA cholesterol, total 206 mg/dL <200 high Not Available [employer] [address] [address] [place], [address], 04/06/2023 10:50:27 04/05/2004/06/2023 LIPID PANEL , STAND RADHA HDL cholesterol 102 mg/dL > or = 50 normal Not Available [employer] [address] [address] [place], [address], 04/06/2023 10:50:27 04/05/2004/06/2023 LIPID PANEL , STAND RADHA triglyceride s 44 mg/dL <150 normal Not Available [employer] [address] [address] [place], [address], 04/06/2023 10:50:27 04/05/20 23 04/06/2023 LIPID PANEL , STAND RADHA LDL-choleste rol 91 mg/dL _(radha c) normal Refer ence range : <100 Sonido able range <100 mg/dL for prima ry preve ntion ; <70 mg/dL for patie nts with CHD or diabe tic patie nts with > or = 2 CHD risk facto rs. LDL-C is now calcu lated using the Kathleen n-Hop kins calcu anjelica n, which is a valid ated novel metho d provi ding hayley r accur acy than the Fried meera equat ion in the estim ation of LDL-C . Kathleen cruz SS et al. KYLE. 2013; 310(1 9): 2061- 2068 (http ://ed ucati on.Qu melanyCaterCow. com/f aq/FA Q164) Not Available [employer] [facility] [address] [place], [address], 04/06/2023 10:50:27 04/05/2004/06/2023 LIPID PANEL , STAND RADHA chol/HDLC ratio 2.0 (calc ) <5.0 normal Not Available [employer] [facility] [address] [place], [address], 04/06/2023 10:50:27 04/05/20 23 04/06/2023 LIPID PANEL , STAND RADHA non HDL cholesterol 104 mg/dL _(radha c) <130 normal For patie nts with diabe shakira plus 1 major ASCVD risk facto r, treat ing to a non-H DL-C goal of <100 mg/dL (LDL- C of <70 mg/dL ) is consi randee mays c optio n. Not Available [employer] [facility] [address] [place], [address], 04/06/2023 10:50:27 04/05/20 23 04/06/2023 COMPR EHENS TEMI METAB OLIC PANEL glucose 83 mg/dL 65-139 normal Non-f astin g refer ence inter aldo Not Available [address] [address] [place], [address], 04/06/2023 10:50:29 04/05/20 23 04/06/2023 COMPR EHENS TEMI METAB OLIC PANEL urea nitrogen (BUN) 23 mg/dL 7-25 normal Not Available [address] [address] [place], [address], 04/06/2023 10:50:29 04/05/20 23 04/06/2023 COMPR EHENS TEMI METAB OLIC PANEL creatinine 0.87 mg/dL 0.50-1 .03 normal Not Available [address] [address] [place], [address], 04/06/2023 10:50:29 04/05/20 23 04/06/2023 COMPR EHENS TEMI METAB OLIC PANEL eGFR 79 mL/mi n/1.7 3m2 > or = 60 normal The eGFR is based on the CKD-E PI 2020 equat ion. To calcu late the new eGFR from a previ ous Creat inine or Cysta tin C resul t, go to https ://ryanne meade/omaira hinojosa s/ kdoqi /gfr% 5Fcal culat or Not Available [address] [address] [place], [address], 04/06/2023 10:50:29 04/05/20 23 04/06/2023 COMPR EHENS TEMI METAB OLIC PANEL BUN/creatini ne ratio NOT APPLIC ABLE (calc ) 6-22 Not Available [address] [address] [place], [address], 04/06/2023 10:50:29 04/05/20 23 04/06/2023 COMPR EHENS TEMI METAB OLIC PANEL sodium 142 mmol/ L 135-14 6 normal Not Available [address] [address] [place], [address], 04/06/2023 10:50:29 04/05/20 23 04/06/2023 COMPR EHENS TEMI METAB OLIC PANEL potassium 4.1 mmol/ L 3.5-5. 3 normal Not Available [address], [address], 04/06/2023 10:50:29 04/05/20 23 04/06/2023 COMPR EHENS TEMI METAB OLIC PANEL chloride 107 mmol/ L 98-110 normal Not Available [address], [address], 04/06/2023 10:50:29 04/05/20 23 04/06/2023 COMPR EHENS TEMI METAB OLIC PANEL carbon dioxide 29 mmol/ L 20-32 normal Not Available [address], [address], 04/06/2023 10:50:29 04/05/20 23 04/06/2023 COMPR EHENS TEMI METAB OLIC PANEL calcium 9.2 mg/dL 8.6-10 .4 normal Not Available [address], [address], 04/06/2023 10:50:29 04/05/20 23 04/06/2023 COMPR EHENS TEMI METAB OLIC PANEL protein, total 6.4 g/dL 6.1-8. 1 normal Not Available [address], [address], 04/06/2023 10:50:29 04/05/20 23 04/06/2023 COMPR EHENS TEMI METAB OLIC PANEL albumin 4.2 g/dL 3.6-5. 1 normal Not Available [address], [address], 04/06/2023 10:50:29 04/05/20 23 04/06/2023 COMPR EHENS TEMI METAB OLIC PANEL globulin 2.2 g/dL_ (calc ) 1.9-3. 7 normal Not Available [address] [address] [place], [address], 04/06/2023 10:50:29 04/05/20 23 04/06/2023 COMPR EHENS TEMI METAB OLIC PANEL albumin/glob ulin ratio 1.9 (calc ) 1.0-2. 5 normal Not Available [address], [address], 04/06/2023 10:50:29 04/05/20 23 04/06/2023 COMPR EHENS TEMI METAB OLIC PANEL bilirubin, total 0.4 mg/dL 0.2-1. 2 normal Not Available [address], [address], 04/06/2023 10:50:29 04/05/20 23 04/06/2023 COMPR EHENS TEMI METAB OLIC PANEL alkaline phosphatase 71 U/L 37-153 normal Not Available [address], [address], 04/06/2023 10:50:29 04/05/20 23 04/06/2023 COMPR EHENS TEMI METAB OLIC PANEL AST 20 U/L 10-35 normal Not Available [address], [address], 04/06/2023 10:50:29 04/05/20 23 04/06/2023 COMPR EHENS TEMI METAB OLIC PANEL ALT 14 U/L 6-29 normal Not Available [address], [address], 04/06/2023 10:50:29 04/05/20 23 04/06/2023 CBC (INCL UDES DIFF/ PLT) white blood cell count 5.7 thous and/u L 3.8-10 .8 normal Not Available [address], [address], 04/06/2023 10:50:30 04/05/20 23 04/06/2023 CBC (INCL UDES DIFF/ PLT) red blood cell count 4.31 melissa on/uL 3.80-5 .10 normal Not Available [address], [address], 04/06/2023 10:50:30 04/05/20 23 04/06/2023 CBC (INCL UDES DIFF/ PLT) hemoglobin 13.7 g/dL 11.7-1 5.5 normal Not Available [address], [address], 04/06/2023 10:50:30 04/05/20 23 04/06/2023 CBC (INCL UDES DIFF/ PLT) hematocrit 41.1 % 35.0-4 5.0 normal Not Available [address], [address], 04/06/2023 10:50:30 04/05/20 23 04/06/2023 CBC (INCL UDES DIFF/ PLT) MCV 95.4 fL 80.0-1 00.0 normal Not Available [address], [address], 04/06/2023 10:50:30 04/05/20 23 04/06/2023 CBC (INCL UDES DIFF/ PLT) MCH 31.8 pg 27.0-3 3.0 normal Not Available [address], [address], 04/06/2023 10:50:30 04/05/20 23 04/06/2023 CBC (INCL UDES DIFF/ PLT) MCHC 33.3 g/dL 32.0-3 6.0 normal Not Available [address], [address], 04/06/2023 10:50:30 04/05/20 23 04/06/2023 CBC (INCL UDES DIFF/ PLT) RDW 12.0 % 11.0-1 5.0 normal Not Available [address], [address], 04/06/2023 10:50:30 04/05/20 23 04/06/2023 CBC (INCL UDES DIFF/ PLT) platelet count 236 thous and/u L 140-40 0 normal Not Available [address], [address], 04/06/2023 10:50:30 04/05/20 23 04/06/2023 CBC (INCL UDES DIFF/ PLT) MPV 10.8 fL 7.5-12 .5 normal Not Available [address], [address], 04/06/2023 10:50:30 04/05/20 23 04/06/2023 CBC (INCL UDES DIFF/ PLT) absolute neutrophils 3067 cells /uL 1500-7 800 normal Not Available [address], [address], 04/06/2023 10:50:30 04/05/20 23 04/06/2023 CBC (INCL UDES DIFF/ PLT) absolute lymphocytes 2069 cells /uL 850-39 00 normal Not Available [address], [address], 04/06/2023 10:50:30 04/05/20 23 04/06/2023 CBC (INCL UDES DIFF/ PLT) absolute monocytes 422 cells /uL 200-95 0 normal Not Available [facility] [address], [address], 04/06/2023 10:50:30 04/05/20 23 04/06/2023 CBC (INCL UDES DIFF/ PLT) absolute eosinophils 120 cells /uL 15-500 normal Not Available [employer] [address], [address], 04/06/2023 10:50:30 04/05/20 23 04/06/2023 CBC (INCL UDES DIFF/ PLT) absolute basophils 23 cells /uL 0-200 normal Not Available [address], [address], 04/06/2023 10:50:30 04/05/20 23 04/06/2023 CBC (INCL UDES DIFF/ PLT) neutrophils 53.8 % normal Not Available [facility] [address], [address], 04/06/2023 10:50:30 04/05/20 23 04/06/2023 CBC (INCL UDES DIFF/ PLT) lymphocytes 36.3 % normal Not Available [address], [address], 04/06/2023 10:50:30 04/05/20 23 04/06/2023 CBC (INCL UDES DIFF/ PLT) monocytes 7.4 % normal Not Available [facility] [address], [address], 04/06/2023 10:50:30 04/05/20 23 04/06/2023 CBC (INCL UDES DIFF/ PLT) eosinophils 2.1 % normal Not Available [address], [address], 04/06/2023 10:50:30 04/05/20 23 04/06/2023 CBC (INCL UDES DIFF/ PLT) basophils 0.4 % normal Not Available [facility] [address], [address], 04/06/2023 10:50:30 04/05/20 23 04/06/2023 TSH W/REF LEONCIO TO FT4 TSH w/reflex to FT4 5.85 mIU/L high Refer ence Range > or = 20 Years 0.40- 4.50 Pregn lucio Range s First trime ster 0.26- 2.66 Secon d trime ster 0.55- 2.73 Third trime ster 0.43- 2.91 Not Available [facility] [address] [place], [address], 04/06/2023 10:50:31 04/05/20 23 04/06/2023 T4, FREE T4, free 1.0 NG/dL 0.8-1. 8 normal Not Available [facility] [address] [place], [address], 04/06/2023 10:50:31 04/05/20 23 04/06/2023 VITAM IN D,25- OH,TO JOSHUA,I A vitamin D,25-oh,tota l,ia 34 NG/mL 30-100 normal Vitam in D Statu s 25-OH Vitam in D: Defic iency : <20 ng/mL Insuf ficie ncy: 20 - 29 ng/mL Optim al: > or = 30 ng/mL For 25-OH Vitam in D testi ng on patie nts on D2-jacome pplem entat ion and patie nts for whom quant itati on of D2 and D3 fract ions is requi red, the [facility] eD(TM ) 25-OH VIT D, (D2,D 3), LC/MS /MS is recom coung d: order code 70945 (david ents >2yrs ). See Note 1 Note 1 For addit ional infor parul recinos e refer to http: //[facility] barbara Llanosia gnost ics.c om/fa q/FAQ 199 (This link is being provi ded for infor jo thompson/ educvikram chu purpo ses only. ) Not Available [facility] [address] [place], [address], 04/06/2023 10:50:32 04/05/2004/06/2023 HEMOG LOBIN A1C hemoglobin A1C 5.5 %_of_ total _HGB <5.7 normal For the purpo se of scree daniel for the prese nce of diabe shakira: <5.7% Consi stent with the absen ce of diabe shakira 5.7-6 .4% Consi stent with incre ased risk for diabe shakira (pred iabet es) > or =6.5% Consi stent with diabe shakira This assay resul t is consi stent with a decre ased risk of diabe shakira. Curre ntly, no conse nsus exist s regar ramesh use of hemog lobin A1c for diagn osis of diabe shakira in child simona. Accor ding to Ameri can Diabe shakira Assoc iatio n (ADA) guide lines , hemog lobin A1c <7.0% repre sents optim al contr ol in non-p regna nt diabe tic patie nts. Diffe rent metri cs may apply to speci fic patie nt popul ation s. Stand ards of Medic al Care in Diabe shakira(A DA). Not Available [facility] [address] [place], [address], 04/06/2023 10:50:32 08/11/20 22 08/11/2022 MAMMO , scree daniel, digit al, bilat eral No observ ation record ed. [id number] [facility] [address], [place], [address], 01/24/2023 22:44:17 05/24/20 24 05/23/2024 XR, lumba r spine , 2 view No observ ation record ed. [email or web address] [facility] [address], [place], [address], 05/28/2024 10:56:13 Result Notes None recorded. Problems Name Problem SNOMED Code Status Onset Date Resolution Date Notes Provider Name and Address Organization Details Recorded Time White blood cell count outside reference range 598762371 Active 2021 Carissa Torre APRN [address], [place], [address] , [place] [facility] [place] [employer] 4 08:17:04 Acute sinusitis 32457820 Active 2021 Not Available [employer] 3 22:42:53 Cough 04421498 Active 2022 Not Available [facility] 3 22:42:53 Upper respirator y infection 33917652 Active 2022 Not Available [facility] 3 22:42:53 Pruritic rash 54070645 Active 2022 SEVERIANO HammondP-C [address], [address], [place], [address] , [facility] 3 17:24:57 Menopausal flushing 464235629 Active 2022 SEVERIANO HammondP-C [address], [address], [place], [address] , [facility] 3 17:25:07 Vitamin D deficiency 58016787 Active 2022 Carissa Torre APRN [address], [address], [place], [address] , [facility] 4 08:16:52 Serum thyroid stimulatin g hormone level outside reference range 963477830 Active 2022 Carissa Torre APRN [address], [address], [place], [address] , [facility] 4 08:16:56 Eruption 816390497 Active 2022 Swati rodarte, [facility] 3 16:01:33 C-reactive protein above reference range 7846819168971 04 Active 2023 Carissa Torre APRN [address], [address], [place], [address] , [facility] 4 10:25:47 Pain in bilateral legs 4728703094124 9108 Active 2023 Carissa Torre APRN [address], [address], [place], [address] , [facility] 4 10:26:04 Prediabete s 060008830 Active 2023 Carissa Nicho, MECHANICAL EXPERT [address] [facility], [address], [place], [address] , [facility] [employer] [facility] 4 08:02:25 Problem Notes None recorded. Procedures Surgical History Date Name Laterality Status Provider Name and Address Organization Details Recorded Time delivery completed Not Available [facility] 01/24/2023 22:42:14 Imaging Results None recorded. Procedure Notes None recorded. Medical Equipment None Reported. Allergies No known drug allergies Medications Name Sig Start Date Stop Date Status Note LastModified by Organization Details LastModified Time azithromyci n 250 mg tablet TAKE 2 TABLETS BY MOUTH TODAY, THEN TAKE 1 TABLET DAILY FOR 4 DAYS 03/28 completed Not Available Not Available Not Available prednisone 20 mg tablet TAKE 2 TABLETS BY MOUTH EVERY DAY FOR 5 DAYS 03/28 completed Not Available Not Available Not Available permethrin 5 % topical cream PLEASE SEE ATTACHED FOR DETAILED DIRECTION S 04/30 completed Not Available Not Available Not Available triamcinolo ne acetonide 0.1 % topical cream APPLY A THIN LAYER TO THE AFFECTED AREA(S) BY TOPICAL ROUTE 2 TIMES PER DAY PRN active Not Available Not Available No t Available amoxicillin 875 mg tablet 03/28 completed Not Available Not Available Not Available benzonatate 100 mg capsule Take 1 capsule 3 times a day by oral route as needed. 03/28 completed Not Available Not Available Not Available albuterol sulfate HFA 90 mcg/actuati on aerosol inhaler INHALE 2 PUFFS EVERY 4 HOURS NEEDED active Not Available Not Available No t Available Vitals Date Recorded Body mass index (BMI) Body height Oxygen saturation Oxygen saturation in Arterial blood by Pulse oximetry Heart rate Body temperature Body weight Systolic And Diastolic Provider Name and Address Organization Details Last Updated DateTime 2 22.9 kg/m2 170.18 cm 99 % 99 % 73 /min 97.7 [degF] 60900.4 9 g 116/76 mm[Hg] Not Available [facility] 3 22:42:19 Date Recorded Body height Body mass index (BMI) Body weight Body temperature Heart rate Oxygen saturation Oxygen saturation in Arterial blood by Pulse oximetry Systolic And Diastolic Provider Name and Address Organization Details Last Updated DateTime 3 170.18 cm 22.1 kg/m2 86171.5 2 g 98 [degF] 64 /min 98 % 98 % 114/70 mm[Hg] Mary Ellen Rodriguez MA [facility] [employer] [facility] 3 11:59:47 Date Recorded Body mass index (BMI) Body weight Provider Name and Address Organization Details Last Updated DateTime 04/30/2024 22.3 kg/m2 95219.91 g Carissa Nicho, MECHANICAL EXPERT [address] [facility], [facility] [address], [place], [address], [facility] [employer] [facility] 04/30/2024 10:19:35 Date Recorded Body height Body temperature Heart rate Oxygen saturation Oxygen saturation in Arterial blood by Pulse oximetry Systolic And Diastolic Provider Name and Address Organization Details Last Updated DateTime 4 170.18 cm 97 [degF] 58 /min 99 % 99 % 110/68 mm[Hg] Lyric Lomax MA [facility] [employer] [facility] 4 10:07:39 Date Recorded Body mass index (BMI) Body height Oxygen saturation Oxygen saturation in Arterial blood by Pulse oximetry Heart rate Body temperature Body weight Systolic And Diastolic Provider Name and Address Organization Details Last Updated DateTime 2 22.9 kg/m2 170.18 cm 99 % 99 % 64 /min 97.6 [degF] 40606.4 9 g 112/74 mm[Hg] Not Available [facility] 3 22:42:19 Date Recorded Body height Provider Name an d Address Organization Details Last Updated DateTime 10/27/2022 170.18 cm Not Available [facility] 3 22:42:19 Social History Question Answer Notes LastModified by Organizat ion Details LastModified Time Tobacco Smoking Status Never Smoker Not Available [facility] 01/24/2023 22:42:01 Do You Wear A Helmet When Biking? Yes [id number] Information not available 01/24/2023 What Is Your Level Of Caffeine Consumption? Moderate [id number] Information not available 01/24/2023 In The 14 Days Before Symptom Onset, Have You Had Close Contact With A Laboratory-confir med COVID-19 While That Case Was Ill? No [id number] Information not available 01/24/2023 In The 14 Days Before Symptom Onset, Have You Had Close Contact With A Person Who Is Under Investigation For COVID-19 While That Person Was Ill? No [id number] Information not available 01/24/2023 What Type Of Diet Are You Following? REGULAR [id number] Information not available 01/24/2023 What Is The Highest Grade Or Level Of School You Have Completed Or The Highest Degree You Have Received? [id number] Information not available 01/24/2023 Have There Been Any Changes To Your Family Or Social Situation? No Information no t available 04/30/2024 What Is The Fluoride Status Of Your Home? Unknown [id number] Information not available 01/24/2023 Are There Any Guns Present In Your Home? No [id number] Information not available 01/24/2023 Do You Use Insect Repellent Routinely? No [id number] Information not available 01/24/2023 Where Do You Live? [place] [id number] Information not available 01/24/2023 What Was The Date Of Your Most Recent Tobacco Screening? 04/30/2024 Information not available 04/30/2024 How Many Children Do You Have? 1 Information not available 04/30/2024 Do You Have Any Pets? Yes [id number] Information not available 01/24/2023 What Is Your Relationship Status? Information not available 04/30/2024 Do You Use Your Seat Belt Or Car Seat Routinely? Yes [id number] Information not available 01/24/2023 Do You Have Smoke And Carbon Monoxide Detectors In Your Home? Yes [id number] Information not available 01/24/2023 Are You Passively Exposed To Smoke? No [id number].[id number] 5050 Information not available 01/24/2023 Are There Any Smokers In Your House? No Information not available 04/30/2024 Do You Use Sunscreen Routinely? Yes [id number] 1519 Information not available 01/24/2023 Have You Recently Traveled Abroad? No [id number] Information not available 01/24/2023 Do You Have Any Dietary Restrictions? No [id number].[id number] Information not available 01/24/2023 Sex: Unknown Functional Status Question Answer Note LastModified by Organizat [employer] Details LastModified Time Do you use any illicit or recreational drugs? No [id number] Information not available 01/24/2023 Do you or have you ever used any other forms of tobacco or nicotine? No [id number] 026 Information not available 01/24/2023 What is your level of alcohol consumption? Occasional [id number] 026 Information not available 01/24/2023 What is your occupation? self employed [id number] 026 Information not available 01/24/2023 What is your exercise level? Moderate [id number] 026 Information not available 01/24/2023 Mental Status Question Answer Note LastModified by Organizat ion Details LastModified Time Do you feel stressed (tense, restless, nervous, or anxious, or unable to sleep at night)? [id number] Information not available 01/24/2023 Family History Relationship Description Onset Age of this Age Resolved Age Notes LastModified by Organization Details LastModified Time Mother Dementia [id number] Not available 01/24/2023 22:42:15 Maternal Grandmother Hypertensive disorder [id number] Not available 01/24/2023 22:42:15 Maternal Grandfather Congestive heart failure [id number] Not available 01/24/2023 22:42:15 Medical History Condition Response BLINDNESS N NERVE DISEASE N RHEUMATIC FEVER N BLADDER PROBLEMS N KIDNEY STONES N MRSA N OTHER # 1 N POLIO N LUNG DISEASE/DISORDER N HISTORY OF DRUG ABUSE N RADIATION / CHEMOTHERAPY N COPD N Other # 2 N BLOOD DISEASES N EAR OR HEARING PROBLEMS N MUMPS N SHINGLES N DEPRESSION (INCLUDING POST ) N BOWEL PROBLEMS N STROKE/TIA N ULCERS N BENIGN PROSTATIC HYPERPLASIA N MEASLES N HYPOTENSION N MYOCARDIAL INFARCTION N OBESITY N GERD/NAUSEA N ANEURYSM N URINARY/BLADDER/KIDNEY PROBLEMS N CORONARY ARTERY DISEASE (CAD) N ADDICTION CONCERNS N ENDOMETRIOSIS N Impotence N USE OF BLOOD THINNERS N SKIN PROBLEMS N GASTROINTESTINAL DISORDER N PERIPHERAL VASCULAR DISEASE N MUSCLE,JOINT OR BONE PROBLEMS N GASTROINTESTINAL BLEEDING N BLOOD CLOTS N ASTHMA N CATARACTS N ERECTILE DYSFUNCTION N VARICOSITIES N GI PROBLEMS N Low Testosterone N INFERTILITY N AIDS/HIV N CHEMOTHERAPY / RADIATION N LIVER DISEASE N MALE HYPOGONADISM N HYPERTENSION N Deficiency N TOURETTE'S N ANXIETY DISORDER N BLOOD TRANSFUSION N ANEMIA/BLOOD DISORDER N CHRONIC EAR INFECTIONS N BRONCHITIS N TUBERCULOSIS N GLAUCOMA N FOOT PROBLEM N DIVERTICULITIS N CHICKENPOX N SLEEP APNEA N INFECTIOUS DISEASE N HEART ARRHYTHMIA N PROSTATE N INSOMNIA N HIGH CHOLESTEROL / HYPERLIPIDEMIA N HYPERTHYROIDISM N EYE PROBLEMS N EDEMA N CHRONIC PAIN SYNDROME N HYPOTHYROIDISM N CAROTID BLOCKAGE N CONSTIPATION N BACK / NECK PROBLEMS N HAVE YOU BEEN HOSPITALIZED OR SEEN IN [facility] ER IN THE PAST YEAR ? N ATHEROSCLEROSIS N BREAST PROBLEMS N DIALYSIS N ECZEMA N OSTEOPOROSIS N ARTHRITIS N NO SIGNIFICANT PAST MEDICAL HISTORY N APPENDICITIS N DIABETES, TYPE N BAD TEETH N ENT N HEARTBURN / REFLUX N AUTISM SPECTRUM DISORDER (ASD) N HEPATITIS / LIVER DISEASE N GOUT N SLEEP DISORDER N ALZHEIMER'S DISEASE N Brain Problems N HERPES N DEMENTIA N HEADACHES/MIGRAINES N SEIZURES/EPILEPSY N VASCULAR DISEASE N PACEMAKER N Blood Disorder N DIZZINESS N HEART DISEASE/HEART PROBLEMS N KIDNEY DISEASE N MULTIPLE SCLEROSIS N CARDIAC ARRHYTHMIA N CANCER: SPECIFY N ATRIAL FIBRILLATION N Gall Stones N PULMONARY EMBOLISM N AUTOIMMUNE DISEASE N Gynecological History Statement/Question Response How many live births 2 Date of Last Pap Current Control Method Menopause Date of Last Colonoscopy Date of Last Mammogram Date of LMP Obstetrics History GPAL:G 2 P 2 0 0 2 Type Value Multiple Births 0 Full Term 2 Induced 0 Spontaneous 0 Premature 0 Living 2 Ectopics 0 Total 2 Immunizations Vaccine Type Date Status Note Provider Nahum e and Address Organization Details Recorded Time COVID-19, mRNA, LNP-S, PF, 30 mcg/0.3 mL dose 01/06/2022 completed Carissa Torre APRN [address], [facility] [address], [address], [employer] [facility] [employer] [facility] 04/25/2024 12:21:03 COVID-19, mRNA, LNP-S, PF, 30 mcg/0.3 mL dose 04/05/2021 completed Carissa Torre APRN [address], [address], [place], [address], [employer] [facility] [employer] [facility] 04/25/2024 12:21:03 COVID-19, mRNA, LNP-S, PF, 30 mcg/0.3 mL dose 03/13/2021 completed Carissa Torre APRN [address], [address], [place], [address], [employer] [facility] [employer] [facility] 04/25/2024 12:21:03 COVID-19, mRNA, LNP-S, PF, 30 mcg/0.3 mL dose, shauna-sucrose 01/06/2022 completed Carissa Torre APRN [address], [address], [place], [address], [facility] [employer] [facility] 04/25/2024 12:21:03 zoster recombinant 07/16/2023 completed Carissa Torre APRN [address], [address], [place], [address], [facility] [employer] [facility] 05/27/2024 14:57:47 zoster recombinant 09/17/2023 completed Carissa Torre APRN [address], [address], [place], [address], [facility] [employer] [facility] 05/27/2024 14:57:47 Tdap 07/16/2023 stevie Torre APRN [address], [address], [place], [address], [facility] [employer] [facility] 05/27/2024 14:57:47 Past Encounters Encounter ID Performer Location Encounter Start Date Encounter Closed Date Diagnosis/Indication Diagnosis SNOMED-CT Code Diagnosis ICD10 Code Diagnosis Note [id number] Paula sue MD [facility] Alfredo marcus [address] [place] [address] [place] [address] 02/22/2022 00:00:00 02/22/2022 14:09:46 [id number] Paula sue MD [facility] Alfredo marcus [address] [place] [address] [place] [address] 03/22/2022 00:00:00 03/22/2022 17:02:28 [id number] Paula sue MD [facility] Med [address] [place] [address] 07/14/2022 00:00:00 07/14/2022 12:52:36 [id number] Paula sue MD [facility] Internal Med [address], [address] [place] [address] 10/27/2022 00:00:00 10/27/2022 15:13:10 [id number] Paula sue MD [facility] Internal Med Alfredo marcus [address] [facility] [place] [address] [address] 03/28/2023 11:42:47 03/28/2023 12:26:13 Active or passive immunization 499047685 Z23 recommend local pharmacy for shingles vax due to insurance Adult heal th examination 815573233 Z00.00 Referral needed [id number] Z76.89 Hyperlipid emia screening 506658566 Z13.220 Diabetes m ellitus screening 786259847 Z13.1 Thyroid di sorder screening 751184570 Z13.29 Vitamin D deficiency 347 39661 E55.9 Not currently on supplement , check labs Depression screening 171 976110 Z13.31 Normal bod y mass index 50809513 Z68.22 recommend healthy, well balanced mealsfocus on lean meats, fresh vegetables , fresh fruits, whole grainsredu ce fast/proce ssed foods or eating out to no more than 1-2 times per weekaim to get 30 min of exercise most days of the week- walking is a great choicealso recommend resistance training 2-3 times per week [id number] Paula sue MD [facility] Internal Med Alfredo marcus [address] [facility] [place] [address] [address] 04/30/2024 09:56:02 04/30/2024 10:41:41 Diabetes mellitus screening 178899036 Z13.1 Hyperlipid emia screening 335121410 Z13.220 Screening for disorder 075949905 Z13.9 Thyroid di sorder screening 911029310 Z13.29 Vitamin D deficiency 347 21342 E55.9 Pain in bi lateral legs [id number] 7767195 M79.604 M79.605 Postmenopausal state 764 92463 Z78.0 Health Concerns Section Related Observation LastModified by Organization Detai ls LastModified Time None Recorded Concern Status LastModified by Organization Details LastModified Time None Recorded Advance Directives Directive None Recorded Payers Insurance Date Sequence Insurance Name Policy Number Policy Mariscal Covered Member ID Mariscal Member ID Guarantor Name 04/30/2024 2 [facility] [id number] Ana Atkins [id number] Ana Atkins 11/09/2024 1 MAX (O) [id number] Tyrone Cooper [id number] Ana Atkins OBGyn Episode No OBEpisode recorded.
== END 2025-06-23 12:59 | disposition home or self-care (01) ==
LOC: ANHIMG 13:00
PROVIDERS: PCP Nurse Practitioner Family; Visit Provider Nurse Practitioner
DX: R92.8 Other abnormal and inconclusive findings on diagnostic imaging of breast (principal)
CPT/HCPCS: 76641; 77062; 77066; G0279